=== PATIENT | female | born 1960 | race Caucasian/White ===

== ENCOUNTER 2020-09-15 18:04 | Emergency (ER) | payer BC, OTHER ==
[~2020-09-15 18:04] MED LIST: AMBIEN10 MG PO; COLLAGEN PLUS1 EACH PO; ECOTRIN81 MG PO; FISH OIL 1,2001 EAC1 PO; IBUPROFEN600 MG PO; MELATONIN1 MG PO; THERAGRAN M TAB1 EA PO; TUMERIC PO; XANAX1 MG PO
[2020-09-15 21:14] LABS: HEMOGLOBIN 12.1 gm/dl (12.3-15.3); RED BLOOD COUNT 3.97 M/UL (4.00-5.10)
[2020-09-15 21:45] LABS: BUN/CREATININE RATIO 21 (0-10)
== END 2020-09-16 05:50 | disposition home or self-care (01) ==
LOC: ER1 18:04
PROVIDERS: Emergency Medicine
DX: R55 Syncope and collapse (principal); R00.2 Palpitations; I10 Essential (primary) hypertension
CPT/HCPCS: 36415; 70496; 71046; 80053; 81001; 82550; 82553; 83874; 84484; 85025; 93005; 99285; Q9963; Q9967